=== PATIENT | male | born 1995 | race Two or more races ===

== ENCOUNTER 2022-12-18 12:59 | Emergency (ER) | payer OTHER ==
[2022-12-18 13:16] VITALS: BP 107/65; PULSE 68; RESP 20; TEMP 97.5; BMI 18.2
[2022-12-18 14:55] LABS: BASO % 0.7 % (0-2.0); EOS % 1.4 % (0-4.5); HEMATOCRIT 51.7 % (35.4-49); HEMOGLOBIN 17.1 GM/dL (11.7-16.9); LYMPH % 54.9 % (8-40); MCH 28.6 pg (25.7-33.7); MCHC 33.2 g/dl (32.0-35.9); MEAN CELL VOLUME 86.3 fl (80-96); MEAN PLT VOLUME 8.3 fl (7.5-11.1); MONO % 9.1 % (3.8-10.2); NEUT % 33.9 % (42.8-82.8); PLATELET COUNT 280 10^3/uL (134-434); RBC 5.99 M/mm3 (4.00-5.60); RDW 14.9 % (11.9-15.9); WHITE BLOOD COUNT 4.6 K/mm3 (4.0-10.0)
[2022-12-18 14:58] LABS: PH,URINE 8.5 (5.0-8.0); URINE APPEARANCE CLEAR; URINE BILIRUBIN NEGATIVE (NEGATIVE); URINE COLOR YELLOW; URINE GLUCOSE (UA) NEGATIVE (NEGATIVE); URINE KETONE NEGATIVE (NEGATIVE); URINE LEUK ESTERASE NEGATIVE (NEGATIVE); URINE NITRITE NEGATIVE (NEGATIVE); URINE PROTEIN NEGATIVE (NEGATIVE); URINE UROBILINOGEN 0.2 mg/dL (0.2-1.0)
[2022-12-18 15:21] LABS: ALBUMIN 4.5 g/dl (3.4-5.0); BLOOD UREA NITROGEN 11.6 mg/dL (7-18)
[2022-12-18 15:23] LABS: CREATININE 0.9 mg/dL (0.55-1.3)
[2022-12-18 15:25] LABS: TOT PROT 8.3 g/dl (6.4-8.2)
[2022-12-18 15:36] LABS: SYPHILIS W/ RPR CONF NON-REACTIVE (NONREACTIVE)
[2022-12-18 16:05] LABS: HIV INTERPRETATION NEGATIVE (NEGATIVE)
== END 2022-12-18 16:31 | disposition home or self-care (01) ==
LOC: JERFT 12:59
DX: R21 Rash and other nonspecific skin eruption (principal)
CPT/HCPCS: 36415; 76870-TC; 80053; 81003; 85025; 86780; 86803; 87086; 87340; 87389; 87491; 87517; 87591; 99284-25

== ENCOUNTER 2023-04-13 11:19 | Emergency (ER) | payer OTHER ==
[2023-04-13 11:26] VITALS: BP 113/77; PULSE 79; RESP 20; TEMP 98.4; BMI 32.2
== END 2023-04-13 13:10 | disposition home or self-care (01) ==
LOC: JERFT 11:19
DX: R21 Rash and other nonspecific skin eruption (principal); L29.9 Pruritus, unspecified; A63.0 Anogenital (venereal) warts; B86 Scabies
CPT/HCPCS: 99283-25